=== PATIENT | male | born 1990 | race Caucasian/White ===

== ENCOUNTER 2022-08-12 19:06 | Emergency (ER) | payer SELFPAY ==
[~2022-08-12] VITALS: Ht 170.2 cm; Wt 111.5 kg
[2022-08-12 20:10] VITALS: BP 130/87
[2022-08-12] MEDS ORDERED: DOXY100T2 MT (20:20)
[2022-08-12] MEDS ORDERED: CEFTRIAXONE SODIUM 500 MG/VIAL IM ONE (20:30)
[2022-08-13] MEDS ORDERED: CEFTRIAXONE SODIUM 500 MG/VIAL IM NR (00:45)
== END 2022-08-13 01:33 | disposition home or self-care (01) ==
LOC: ER 19:06
DX: Z20.2 Contact with and (suspected) exposure to infections with a predominantly sexual mode of transmission (principal)
CPT/HCPCS: 96372; 99283; J0696